=== PATIENT | female | born 1940 | race Caucasian/White ===

== ENCOUNTER 2024-03-07 18:33 | Emergency (ER) | payer MEDICARE ==
[~2024-03-07] VITALS: Ht 162.6 cm; Wt 80.7 kg
[~2024-03-07 18:33] MED LIST: ATOR10 PO; BENHYD1012 PO
[2024-03-07 18:37] VITALS: BP 155/92
== END 2024-03-07 19:59 | disposition home or self-care (01) ==
LOC: ER 18:33
DX: S61.313A Laceration without foreign body of left middle finger with damage to nail, initial encounter (principal); I10 Essential (primary) hypertension; E78.5 Hyperlipidemia, unspecified; Z79.899 Other long term (current) drug therapy; W26.0XXA Contact with knife, initial encounter; Y93.G1 Activity, food preparation and clean up
CPT/HCPCS: 99282